=== PATIENT | female | born 1955 | race Caucasian/White ===

== ENCOUNTER 2016-11-21 07:25 | Day surgery (SDC) | payer BC, MEDICARE ==
--- NOTE | 2016-11-21 07:21 | History and Physical Report ---
DATE OF EVALUATION: 11/21/2016. CHIEF COMPLAINT AND HISTORY OF CHIEF COMPLAINT: This patient presents with a history of a spinal cord stimulator implant on 02/25/2013 for a postcervical laminectomy syndrome. Although the system appeared to be doing well, over the last year complete patterns of stimulation have slowly degraded. At this point there is no adequate stimulation at all. Attempts at reprogramming were unsuccessful. She was given the option to replace, revise, or remove; she opted to remove. PAST MEDICAL HISTORY: Hypertension. REVIEW OF SYSTEMS: The patient is appropriate and in no acute distress. The remainder of the systems review shows glasses, chronic head and neck infections , blood pressure problems, irregular heart beat, renal disease, degenerative arthritis, depression, and difficulty sleeping. SOCIAL HISTORY: Caffeine. FAMILY HISTORY: Thyroid disease, coronary artery disease, hypertension. PAST SURGICAL HISTORY: Cervical spine fusion, knee surgery, sinus surgery, stimulator implant. ALLERGIES: Demerol and erythromycin. MEDICATIONS ON ADMISSION: To be provided. PHYSICAL EXAMINATION: General: Height is 5 feet, 10 inches. Weight is 160 pounds. Vital Signs: Unavailable. HEENT: Within normal limits. Lungs: Clear. Heart: Regular rate and rhythm. Abdomen: Nontender. Musculoskeletal: Examination of the musculoskeletal system shows the incisional site for the leads at T1-2. The generator is at the right posterior gluteal margin. All incisions are intact. Primary pain pattern is radicular into the shoulders, arms, and chest wall. Neurologic: Cranial nerves are intact. IMPRESSIONS: 1. POSTCERVICAL LAMINECTOMY SYNDROME, ICD10 CODE M96.1. 2. CERVICAL RADICULITIS, ICD10 CODE M54.13. 3. SPINAL CORD STIMULATOR INTERNAL GENERATOR NONFUNCTIONAL. PLANS: The patient is here for removal of the spinal cord stimulator internal generator. The procedure will be considered outpatient, although an overnight stay will be evaluated. Brennan Alvarez D.O. Date Time JOB NUMBER: [id number] cc: Dr. Ruperto LEE
[~2016-11-21 07:25] MED LIST: ACETAMINOPHEN 1000MG/100 ML PREMIX IV ONE; CEFAZOLIN 2 Gram 50 ML IVPB ONE; FAMOTIDINE 20MG TABLET PO ONE; MECLIZINE 25 MG TABLET PO ONE; METOCLOPRAMIDE 10 MG TABLET PO ONE
[2016-11-21 07:44] LABS: BASO % 0.9 % (0-6); EOS % 2.6 % (0-6); HEMATOCRIT 39.8 % (35.0-47.0); HEMOGLOBIN 13.4 gm/dl (11.6-16.0); LYMPH % 35.9 % (16-45); MEAN CELL VOLUME 96.4 fl (81-97); MEAN CORPUSCULAR HEMOGLOBIN 32.4 pg (27-33); MEAN CORPUSCULAR HGB CONC 33.7 g/dl (32-36); MEAN PLATELET VOLUME 9.8 fl (7.4-10.4); MONO % 9.6 % (0-9); PLATELET COUNT 267 K/uL (130-400); RED BLOOD COUNT 4.13 M/uL (3.80-5.40); RED CELL DISTRIBUTION WIDTH 12.6 % (11.5-14.5); WHITE BLOOD COUNT W/O DIFF 4.6 K/uL (4.2-12.2)
[2016-11-21 07:56] LABS: INR 1.06; PARTIAL THROMBOPLASTIN TIME 26.6 SECONDS (24.5-39.1)
[2016-11-21 08:06] LABS: CREATININE 1.2 mg/dL (0.52-1.04)
[2016-11-21] MEDS ORDERED: BUPIVACAINE 0.5% W/EPI MPF 30 ML VIAL IVP ONE (13:16)
[2016-11-21] MEDS ORDERED: CEFAZOLIN 1G VIAL IM ONE (13:16)
[2016-11-21] MEDS ORDERED: LIDOCAINE 1% W/EPI 1:200,000 MPF 30ML SQ ONE (13:16)
[2016-11-21] MEDS ORDERED: OXYCODONE/APAP 10MG-325MG TABLET PO ONE (13:16)
[2016-11-21] MEDS ORDERED: PROPOFOL 10 MG/ML VIAL IV ONE (13:21)
[2016-11-21] MEDS ORDERED: FENTANYL PF 100MCG/2ML VIAL IV ONE (13:21)
[2016-11-21] MEDS ORDERED: KETAMINE HCL 10 MG/ML (20ML) VIAL *PACU IV ONE (13:21)
[2016-11-21] MEDS ORDERED: MIDAZOLAM HCL 2MG/2ML VIAL IV ONE (13:21)
[2016-11-21] MEDS ORDERED: LIDOCAINE 2% MDV (20MG/ML) 20ML VIAL IV ONE (13:21)
--- NOTE | 2016-11-21 16:53 | Operative Note - [place] ---
DATE OF SURGERY: 11/21/16 PREOPERATIVE DIAGNOSES: 1. CERVICAL RADICULITIS, ICD-10 CODE = M54.13. 2. TWO LEAD SPINAL CORD STIMULATOR/INTERNAL GENERATOR NONFUNCTIONAL. OPERATION: 1. INCISION, SUBCUTANEOUS DISSECTION, AND [id number] OF TWO INDWELLING SPINAL CORD STIMULATORS. 2. INCISION, SUBCUTANEOUS DISSECTION, AND REMOVAL OF INDWELLING PULSE GENERATOR WITH EXTENSIONS TO RIGHT POSTERIOR GLUTEAL MARGIN. SURGEON: DINO THOMAS D.O. ANESTHESIA: LOCAL SEDATION. ANESTHESIA PROVIDER: DONNA VELA CRNA. INDICATION: This patient presents with a history of intractable radiculitis. Approximately four years ago, this patient had a stimulator placed with good success. Over the last six to seven months, the system started to malfunction. She was given the option to remove or replace; she opted to remove. PROCEDURE: Intravenous line, vital sign monitoring, IV sedation, prepped and draped in sterile technique. Under imaging, the incisions for the two cervical stimulators left and right of the midline infiltrated, incision made, and subcutaneous dissection was conducted to the anchors and leads. The anchors and the suture were removed then two leads removed intact. Electrodes accounted for bilateral. At the right posterior/superior gluteal margin generator pouch, skin infiltrated, incision made, and subcutaneous dissection was conducted to the generator pouch. The generator was removed along with the extensions. Antibiotic irrigation. Bovie for hemostasis. The two incisions were then closed Vicryl for fascia, running subcuticular Vicryl for skin. Dermabond closure. She was transported to the Recovery Room stable, showing no side-effects from the procedure or the sedation. In the Recovery Room, she was stable and felt to be discharged home. DISCHARGE INSTRUCTIONS IN THE MORNIN. The sites to remain clean and dry although the Dermabond will allow showering. 2. Standard medications including the antibiotic, Levaquin, 500 mg once a day for 14 days. 3. The office will contact the patient at home. She will be seen in the office in the next seven day to evaluate the sites. Until then, her activity levels should remain low. DINO THOMAS D.O. Date & Time cc: Dr. Kei Hickey JOB NUMBER: [id number] [facility]
== END 2016-11-21 10:15 | disposition home or self-care (01) ==
LOC: SUR 07:25
PROVIDERS: ATTEND Pain Medicine Interventional Pain Medicine
DX: T85.193A Other mechanical complication of implanted electronic neurostimulator, generator, initial encounter (principal); T85.192A Other mechanical complication of implanted electronic neurostimulator of spinal cord electrode (lead), initial encounter; I10 Essential (primary) hypertension
CPT/HCPCS: 85025; 85730; 85610; 80048; 85002; 93005; 93010; 63661; 63688; 00300; J3010; J0690